=== PATIENT | female | born 1955 | race African-American/Black ===

== ENCOUNTER 2025-02-16 17:12 | Emergency (ER) | payer SELFPAY ==
[~2025-02-16] VITALS: Ht 170.2 cm; Wt 81.0 kg
[2025-02-16 17:22] VITALS: O2SAT 98
[2025-02-16] MEDS: HYDROCODONE/ACETAMINOPHEN 5/325MG TABLET PO ONE (18:43)
[2025-02-16] MEDS ORDERED: NAPR-679 MT (19:43)
[2025-02-16 20:01] VITALS: BP 165/99; PULSE 87; RESP 12; TEMP 36.5; O2SAT 98
== END 2025-02-16 20:05 | disposition home or self-care (01) ==
LOC: ER 17:12
DX: M54.50 Low back pain, unspecified (principal); I10 Essential (primary) hypertension
CPT/HCPCS: 72131; 72192; 99284